=== PATIENT | female | born 1960 | race Caucasian/White ===

== ENCOUNTER 2016-05-04 18:25 | Emergency (ER) | payer SELFPAY ==
[~2016-05-04] VITALS: Ht 160 cm; Wt 100.0 kg
[2016-05-04 18:30] VITALS: BP 193/102; PULSE 104; RESP 24; TEMP 98.1; O2SAT 99
[2016-05-04] MEDS ORDERED: ANAS1 PO (18:47)
--- NOTE | 2016-05-04 19:01 | PD ---
HPI Chief Complaint: Eye Problems/Injury Time Seen by Provider: 19:01 Travel History International Travel<30 days: No Contact w/Intl Traveler<30days: No Traveled to known affect area: No History of Present Illness HPI Patient comes in complaining of bilateral eye pain she awoke with this morning. Patient states that she slept in her contacts last night which she does on a regular basis. Patient denies anything like this in the past. Patient awoke with burning sensation bilateral eyes as well as watering eyes. Patient states she was placed in a cool cloth for this. Patient states that making her vision little bit blurry bilaterally. Pain is worse on the right and vision is worse than left. Patient states she took her contacts out without any problems. Denies any known trauma. PFSH Past Medical History Chemotherapy: Yes Social History Alcohol Use: No Tobacco Use: No Substance Use: No Allergies-Medications (Allergen,Severity, Reaction): Coded Allergies: Latex (Verified Allergy, Severe, Anaphylaxis, 05/04/16) Reported Meds & Prescriptions Reported Meds & Active Scripts Active Erythromycin Opth Oint 5 Mg/Gm Oint 1 Applic EACH EYE QID 7 Days Reported Arimidex (Anastrozole) 1 Mg Tab 1 Mg PO DAILY Review of Systems Except as stated in HPI: all other systems reviewed are Neg Physical Exam Narrative GENERAL: Well-developed, overly nourished, in no acute distress, and non-ill appearing. SKIN: Warm and dry. HEAD: Atraumatic. Normocephalic. EYES: Pupils equal and round. EOMI. No scleral icterus. Injection bilaterally without drainage. ENT: No nasal bleeding or discharge. Mucous membranes pink and moist. NECK: Trachea midline. Supple. No nuclear rigidity. RESPIRATORY: No accessory muscle use. No respiratory distress. MUSCULOSKELETAL: No obvious deformities. No clubbing. No cyanosis. No edema. Full range of motion. NEUROLOGICAL: Awake and alert. No obvious cranial nerve deficits. Motor grossly within normal limits. Normal speech. PSYCHIATRIC: Appropriate mood and affect; insight and judgment normal. Data Data Last Documented VS Vital Signs Date Time Temp Pulse Resp B/P Pulse Ox O2 Delivery O2 Flow Rate FiO2 05/04/16 19:15 98 18 160/88 97 Room Air 05/04/16 18:30 98.1 Orders Tetracaine 0.5% Opth Soln (Pontocaine 0. (05/04/16 19:30) Ibuprofen (Motrin) (05/04/16 19:45) [facility] Medical Decision Making Medical Screen Exam Complete: Yes Emergency Medical Condition: Yes Differential Diagnosis Conjunctivitis, corneal ulcer, corneal abrasion, other Narrative Course Patient with mild conjunctivitis. No evidence of foreign body by history or exam. No history to suspect corneal ulceration as well. There is no evidence of iritis, glaucoma, preseptal cellulitis, periorbital or orbital cellulitis. Will place patient on ophthalmologic antibiotics for nonspecific conjunctivitis. This was discussed with the patient. The patient was also instructed to stop wearing all contacts and use their prescription eye glasses. The patient was instructed to throw away all old contacts and contact solutions/ cleaning solutions and obtain new contacts and contact lens solutions but not use until fully resolved or instructed to do so by their sales and training specialist. The patient was instructed to follow up with their sales and training specialist or return here if worsened, increased pain, decreased vision, swelling around the eye or as needed. The patient agreed with plan. The patient was found during their evaluation to have elevated blood pressures. The patient has no prior history of hypertension. The patient has no symptoms as well. The patient denied headache, changes in vision, nausea, vomiting, dizziness, weakness or loss of sensation. The patient denied and chest, back or abdominal pain. The patient also denied any shortness of breath, dyspnea on exertion, orthopnea or PND. The patient denies any edema to extremities. The patients blood pressures at discharge were at an acceptable level. I discussed with the patient that the standard of care is to not initiate antihypertensive medications at this time and for them to follow up with a primary care physician for continued outpatient evaluation, establish diagnosis of hypertension and potential initiation of blood pressure medications. Return warnings were given to the patient and the patient agreed with plan of care. Patient in no obvious distress upon re-evaluation. Patient was asked if they wanted to speak to my attending, which the patient did not wish to do at this time. Any questions/concerns in reference to patient diagnosis/condition discussed and clarified prior to patient's discharge. Reinforced sheer importance of close follow up with patient's primary physician or primary care clinic. Instructed patient to return to ED immediately, if symptoms return/ worsen. Pt showed understanding of above instructions. Further instructions and recommendations were detailed in discharge paperwork. Pt ambulated without difficulty out of ED at discharge. Procedures Procedure Narrative Verbal consent was obtained. Affected eye was anesthetized using proparacaine. Fluorescein staining and Wood lamp exam performed with no uptake seen. Negative Oliver sign. No hyphema, hyperemia, or rust ring. Eyelid was everted with no foreign body noted. No tenderness bilateral temporal arteries to palpation. Patient tolerated procedure well. Diagnosis Primary Impression: Conjunctivitis of both eyes Qualified Code: H10.33 - Acute conjunctivitis of both eyes, unspecified acute conjunctivitis type Additional Impression: Elevated blood pressure reading Patient Instructions: Conjunctivitis (ED), General Instructions, Hypertension ( DC) Additional Instructions: Follow-up with your primary care physician and/or sales and training specialist this week for reevaluation. Conjunctivitis. Follow-up with your primary care physician for reevaluation of elevated blood pressure was noted here today. Do not wear contacts again until cleared by your primary care doctor and/or your sales and training specialist. Take all medication as prescribed. Return to the emergency department if symptoms get worse. Med/Other Pt SpecificInfo: Prescription(s) given Scripts Erythromycin Opth Oint 5 Mg/Gm Oint1 Applic EACH EYE QID 7 Days Ref 0 Prov:Pretty Cobb MD 05/04/16 Disposition: 01 DISCHARGE HOME Condition: Stable Neo Dukes May 04, 2016 19:01
[2016-05-04 19:15] VITALS: BP 160/88; PULSE 98; RESP 18; O2SAT 97
[2016-05-04] MEDS ORDERED: ERYTOIN10 EACH EYE (19:15)
[2016-05-04] MEDS ORDERED: TETRACAINE 0.5% OPTH SOLN 2 ML BTL EACH EYE ONE (19:15)
[2016-05-04] MEDS ORDERED: TETRACAINE 0.5% OPTH SOLN 15 ML BTL EACH EYE ONE (19:30)
[2016-05-04] MEDS ORDERED: IBUPROFEN 800 MG TAB PO ONE (19:45)
== END 2016-05-04 20:25 | disposition home or self-care (01) ==
LOC: NEPB 18:25
DX: H10.33 Unspecified acute conjunctivitis, bilateral (principal); R03.0 Elevated blood-pressure reading, without diagnosis of hypertension
CPT/HCPCS: 99283